=== PATIENT | female | born 1990 ===

== ENCOUNTER 2016-08-26 20:46 | Emergency (ER) | payer OTHER ==
[2016-08-26 20:54] VITALS: BP 132/70; PULSE 76; RESP 20; TEMP 98.3; O2SAT 100
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
== END 2016-08-26 22:19 | disposition home or self-care (01) ==
LOC: C.ER 20:46
DX: S80.11XA Contusion of right lower leg, initial encounter (principal); T14.8 Other injury of unspecified body region; V49.40XA Driver injured in collision with unspecified motor vehicles in traffic accident, initial encounter